=== PATIENT | female | born 2000 | race Caucasian/White ===

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

== ENCOUNTER → 2019-11-15 12:13 | Outpatient (CLI) | payer OTHER, SELFPAY ==
[2019-11-15 14:20] LABS: Add Manual Diff / Slide Review NO; Basophils Absolute Auto 100 /uL (0-100); Basophils Percent Auto 0.7 % (0-2); Eosinophils Absolute Auto 100 /uL (0-450); Eosinophils Percent Auto 0.7 % (2-4); Hematocrit 41.6 % (36-46); Hemoglobin 13.7 g/dL (12.0-16.0); Lymphocytes Absolute Auto 2000 /uL (1100-4500); Lymphocytes Percent Auto 22.9 % (25-40); Mean Corpuscular HGB Conc 32.9 % (30-36); Mean Corpuscular Hemoglobin 28.5 PG (26-34); Mean Corpuscular Volume 86.7 fL (80-100); Monocytes Absolute Auto 500 /uL (0-900); Monocytes Percent Auto 5.8 % (3-14); Neutrophils Absolute Auto 6200 /uL (1500-7000); Neutrophils Percent Auto 69.9 % (50-75); Platelet Count 342 X10^3/uL (150-400); Red Blood Cell Count 4.81 X10^6/uL (4.0-5.2); Red Cell Distribution Width 13.9 % (11.6-14.8); White Blood Cell Count 8.9 X10^3/uL (4.5-11.0)
[2019-11-15 15:22] LABS: Free T4, Direct Thyroxine 1.21 ng/dL (0.78-2.19)
[2019-11-15 15:36] LABS: Thyroid Stimulating Hormone 1.82 uIU/mL (0.47-4.68)
[2019-11-15 18:10] LABS: Vitamin D 25 Hydroxy (D3) 24.8 ng/mL (30.0-100.0)
== END ==
PROVIDERS: PCP Pediatrics; Referring Provider Pediatrics; Visit Provider Pediatrics
DX: R53.83 Other fatigue (principal)
CPT/HCPCS: 36415; 82306; 84439; 84443; 85025

== ENCOUNTER → 2020-02-28 16:31 | Outpatient (CLI) | payer OTHER, SELFPAY | PROVIDERS: PCP Pediatrics; Visit Provider Physician Assistant | DX: N89.8 Other specified noninflammatory disorders of vagina (principal); R35.0 Frequency of micturition | CPT/HCPCS: 87077; 87086; 87186; 87210 ==

== ENCOUNTER → 2020-08-06 11:31 | Outpatient (CLI) | payer OTHER, SELFPAY ==
[2020-08-06 11:56] LABS: COVID19 -Nasal RAPID Negative (Negative)
== END ==
PROVIDERS: PCP Pediatrics; Visit Provider Physician Assistant
DX: Z11.59 Encounter for screening for other viral diseases (principal)
CPT/HCPCS: 87635

== ENCOUNTER → 2021-01-02 08:17 | Outpatient (CLI) | payer OTHER, SELFPAY ==
[2021-01-02] MEDS: COVID-19 VACC #1, MRNA(MOD) 100 MCG/0.5 ML VIAL IM (08:24)
== END ==
PROVIDERS: Visit Provider Internal Medicine
DX: Z23 Encounter for immunization (principal)
CPT/HCPCS: 0011A; 91301

== ENCOUNTER → 2021-01-29 08:58 | Outpatient (CLI) | payer OTHER, SELFPAY ==
[2021-01-29] MEDS: COVID-19 VACC #2, MRNA(MOD) 100 MCG/0.5 ML VIAL IM (09:03)
== END ==
PROVIDERS: Visit Provider Internal Medicine
DX: Z23 Encounter for immunization (principal)
CPT/HCPCS: 0012A; 91301

== ENCOUNTER → 2021-08-07 14:44 | Outpatient (CLI) | payer OTHER, SELFPAY | PROVIDERS: Referring Provider Internal Medicine; Visit Provider Internal Medicine | DX: Z23 Encounter for immunization (principal) | CPT/HCPCS: 90471; 90686 ==

== ENCOUNTER → 2022-08-26 07:41 | Outpatient (CLI) | payer OTHER, SELFPAY | PROVIDERS: Referring Provider Internal Medicine; Visit Provider Internal Medicine | DX: Z23 Encounter for immunization (principal) | CPT/HCPCS: 90471; 90686 ==

== ENCOUNTER → 2023-07-19 | Outpatient (CLI) | payer SELFPAY | PROVIDERS: Referring Provider Family Medicine; Visit Provider Family Medicine | DX: Z23 Encounter for immunization (principal) | CPT/HCPCS: 90471; 90686 ==